=== PATIENT | male | born 1945 | race Caucasian/White ===

== ENCOUNTER → 2018-01-10 | Outpatient (CLI) | payer MEDICARE, OTHER ==
[~2018-01-10] MED LIST: ASPI325; ATOR10; BUDE6HFA; DOXA2 PO; HYDACE5 PO; LISI20; Norco 10-325 T1 EACH PO; PROBIOTIC1 EAC1 PO; PROM25 PO; PSYL5.85P PO; RXHYD5325 PO; TAMS.4ER PO; WARF4 PO; WARF7.5 PO; Zofran Odt4 MG SL
== END | disposition home or self-care (01) ==
LOC: PLD 07:31 → LAB SHORT 07:31
DX: D04.4 Carcinoma in situ of skin of scalp and neck (principal)
CPT/HCPCS: 88305

== ENCOUNTER → 2018-02-06 | Outpatient (CLI) | payer MEDICARE, OTHER | END | disposition home or self-care (01) | LOC: LAB SHORT 08:23 → PLD 08:23 | DX: D04.4 Carcinoma in situ of skin of scalp and neck (principal) | CPT/HCPCS: 88305 ==

== ENCOUNTER 2019-02-02 11:42 | Emergency (ER) | payer MEDICARE, OTHER ==
[~2019-02-02] VITALS: Ht 177.8 cm; Wt 91.2 kg
[2019-02-02 12:27] LABS: BASOPHILS ABSOLUTE AUTO 0.03 K/mm3 (0.00-0.23); BASOPHILS PERCENT AUTO 0 % (0-2); EOSINOPHILS ABSOLUTE AUTO 0.09 K/mm3 (0.00-0.68); EOSINOPHILS PERCENT AUTO 1 % (0-6); Hematocrit 43.9 % (37.0-53.0); IMMATURE GRAN ABSOLUTE AUTO 0.02 K/mm3 (0.00-0.10); IMMATURE GRAN PERCENT AUTO 0 % (0-1); LYMPHOCYTES ABSOLUTE AUTO 0.66 K/mm3 (0.84-5.20); LYMPHOCYTES PERCENT AUTO 8 % (21-46); MONOCYTES ABSOLUTE AUTO 0.39 K/mm3 (0.16-1.47); MONOCYTES PERCENT AUTO 5 % (4-13); Mean Corpuscular HGB Conc 34.2 g/dL (31.5-36.5); Mean Corpuscular Volume 94 fL (80-100); Mean Platelet Volume 9.8 fL (9.1-12.4); NEUTROPHILS ABSOLUTE AUTO 7.04 K/mm3 (1.96-9.15); NEUTROPHILS PERCENT AUTO 86 % (41-73); Platelet Count 192 K/mm3 (150-400); RDW Standard Deviation 41.5 fL (35.1-46.3); Red Blood Cell Count 4.69 M/mm3 (4.30-5.90); White Blood Cell Count 8.23 K/mm3 (4.00-11.30)
[2019-02-02 12:52] LABS: Alanine Aminotransfer (ALT/SGP 60 U/L (12-78); Albumin, Blood 4.1 g/dL (3.4-5.0); Albumin/Globulin Ratio 1.1 (0.8-1.8); Alk Phos 78 U/L (50-136); Anion Gap 5 mmol/L (6-16); Aspartate Aminotrans (AST/SGOT 35 U/L (12-37); Bilirubin, Total 0.9 mg/dL (0.1-1.0); Blood Urea Nitrogen 14 mg/dL (8-24); Bun/Creatinine Ratio 19.8 (12.0-20.0); CO2, Blood 27 mmol/L (21-32); Chloride, Blood 105 mmol/L (98-108); Creatinine, Blood 0.71 mg/dL (0.60-1.20); Globulin, Blood 3.9 g/dL (2.2-4.0); Glomerular Filtration Rate >60 (60-); Glucose, Blood 137 mg/dL (70-99); Potassium, Blood 3.9 mmol/L (3.5-5.5); Sodium, Blood 137 mmol/L (136-145)
[2019-02-02] MEDS ORDERED: Rapaflo8 MG PO (13:30)
[2019-02-02] MEDS ORDERED: STRIVERDI RESPIM4 GM INH (13:31)
[2019-02-02] MEDS ORDERED: AMLO10 PO (13:31)
[2019-02-02] MEDS ORDERED: MOME220I INH (13:33)
[2019-02-02 14:10] LABS: Bilirubin, Urine Neg (Neg); Blood, Urine Neg (Neg); Glucose Qualitative, Urine Neg (Neg); Ketones, Urine 2+ (Neg); Leukocyte Esterase, Urine Neg (Neg); Nitrite, Urine Neg (Neg); Protein, Urine 1+ (Neg); Urobilinogen, Urine NORM (Normal)
[2019-02-02 14:25] LABS: Appearance, Urine Clear (Clear); Color, Urine Yellow (P-Yellow)
[2019-02-02] MEDS ORDERED: MOTION RELIEF25 MG PO (15:27)
[2019-02-02] MEDS ORDERED: Prednisone20 MG PO (15:27)
== END 2019-02-02 15:46 | disposition home or self-care (01) ==
LOC: ER 11:42
PROVIDERS: Emergency Medicine
DX: H83.09 Labyrinthitis, unspecified ear (principal); E86.0 Dehydration; C61 Malignant neoplasm of prostate; I10 Essential (primary) hypertension; J45.909 Unspecified asthma, uncomplicated; E78.5 Hyperlipidemia, unspecified; Z79.899 Other long term (current) drug therapy; Z79.82 Long term (current) use of aspirin
CPT/HCPCS: 36415; 80053; 85025; 93005; 93010; 96361; 96374; 96375; 99285-25; J1100; J2405; J7120

== ENCOUNTER 2019-10-03 10:36 | Day surgery (SDC) | payer MEDICARE, OTHER ==
[~2019-10-03] VITALS: Ht 177.8 cm; Wt 91.3 kg
[~2019-10-03 10:36] MED LIST changes: +AMLO10 PO; +MOME220I INH; +MOTION RELIEF25 MG PO; +Prednisone20 MG PO; +Rapaflo8 MG PO; +STRIVERDI RESPIM4 GM INH
[2019-10-03] MEDS ORDERED: CODACE30 (11:07)
[2019-10-03] MEDS ORDERED: ALBU90OI (11:09)
[2019-10-03] MEDS ORDERED: ERGO400 (11:10)
[2019-10-03] MEDS ORDERED: NEPHPLEX RX TA1 EACH (11:10)
[2019-10-03] MEDS ORDERED: FISH OIL + D31 EACH (11:10)
[2019-10-03] MEDS ORDERED: AEROECLIPSE II1 EACH (11:11)
[2019-10-03] MEDS ORDERED: TUMS500 MG (11:12)
[2019-10-03] MEDS ORDERED: Flonase 0.05% N16 GM (11:12)
[2019-10-03] MEDS ORDERED: XARELTO15 MG (11:13)
== END 2019-10-03 13:38 | disposition home or self-care (01) ==
LOC: ORSCSDS 10:36
PROVIDERS: Internal Medicine Gastroenterology
PROC: 0DBH8ZX Excision of Cecum, Via Natural or Artificial Opening Endoscopic, Diagnostic (ICD-10-PCS; principal; 2019-10-03 11:30)
PROC: 0DBL8ZX Excision of Transverse Colon, Via Natural or Artificial Opening Endoscopic, Diagnostic (ICD-10-PCS; principal; 2019-10-03 11:30)
PROC: 0DBN8ZX Excision of Sigmoid Colon, Via Natural or Artificial Opening Endoscopic, Diagnostic (ICD-10-PCS; principal; 2019-10-03 11:30)
PROC: 0DJ08ZZ Inspection of Upper Intestinal Tract, Via Natural or Artificial Opening Endoscopic (ICD-10-PCS; principal; 2019-10-03 11:30)
PROC: 0DBM8ZX Excision of Descending Colon, Via Natural or Artificial Opening Endoscopic, Diagnostic (ICD-10-PCS; principal; 2019-10-03 11:30)
PROC: 0D757ZZ Dilation of Esophagus, Via Natural or Artificial Opening (ICD-10-PCS; principal; 2019-10-03 11:30)
DX: Z12.11 Encounter for screening for malignant neoplasm of colon (principal); Z86.010 Personal history of colon polyps; D12.3 Benign neoplasm of transverse colon; D12.0 Benign neoplasm of cecum; D12.4 Benign neoplasm of descending colon; D12.5 Benign neoplasm of sigmoid colon; K21.9 Gastro-esophageal reflux disease without esophagitis; K57.30 Diverticulosis of large intestine without perforation or abscess without bleeding; B37.81 Candidal esophagitis; K22.2 Esophageal obstruction; I48.91 Unspecified atrial fibrillation; Z79.01 Long term (current) use of anticoagulants; J45.909 Unspecified asthma, uncomplicated; J44.9 Chronic obstructive pulmonary disease, unspecified; I10 Essential (primary) hypertension; E78.5 Hyperlipidemia, unspecified; Z79.899 Other long term (current) drug therapy
CPT/HCPCS: 88305; J2704; J7120

== ENCOUNTER 2020-06-17 03:01 | Emergency (ER) | payer OTHER, MEDICARE ==
[~2020-06-17] VITALS: Ht 177.8 cm; Wt 79.4 kg
[~2020-06-17 03:01] MED LIST changes: +AEROECLIPSE II1 EACH; +ALBU90OI; +CODACE30; +ERGO400; +FISH OIL + D31 EACH; +Flonase 0.05% N16 GM; +NEPHPLEX RX TA1 EACH; +TUMS500 MG; +XARELTO15 MG
== END 2020-06-17 05:00 | disposition home or self-care (01) ==
LOC: ER 03:01
DX: N20.0 Calculus of kidney (principal); I48.91 Unspecified atrial fibrillation; I10 Essential (primary) hypertension; E78.00 Pure hypercholesterolemia, unspecified; Z91.030 Bee allergy status; Z88.2 Allergy status to sulfonamides; Z79.899 Other long term (current) drug therapy; Z79.01 Long term (current) use of anticoagulants
CPT/HCPCS: 96374; 96375; 99283-25; A9270; J1885

== ENCOUNTER 2021-04-13 08:37 | Day surgery (SDC) | payer OTHER ==
[~2021-04-13] VITALS: Ht 177.8 cm; Wt 89.7 kg
== END 2021-04-13 10:24 | disposition home or self-care (01) ==
LOC: ORSCSDS 08:37
PROVIDERS: Ophthalmology
PROC: 08RJ3JZ Replacement of Right Lens with Synthetic Substitute, Percutaneous Approach (ICD-10-PCS; principal; 2021-04-13 09:30)
DX: H25.11 Age-related nuclear cataract, right eye (principal); H21.81 Floppy iris syndrome; I10 Essential (primary) hypertension; E78.5 Hyperlipidemia, unspecified; I48.91 Unspecified atrial fibrillation; Z79.01 Long term (current) use of anticoagulants; G47.33 Obstructive sleep apnea (adult) (pediatric); J44.9 Chronic obstructive pulmonary disease, unspecified; J45.909 Unspecified asthma, uncomplicated; Z79.899 Other long term (current) drug therapy
CPT/HCPCS: J2001; J2250; J3010; J3301; J7040; V2632

== ENCOUNTER 2021-04-27 07:07 | Day surgery (SDC) | payer OTHER ==
[~2021-04-27] VITALS: Ht 177.8 cm; Wt 90.4 kg
== END 2021-04-27 08:53 | disposition home or self-care (01) ==
LOC: ORSCSDS 07:07
PROVIDERS: Ophthalmology
PROC: 08RK3JZ Replacement of Left Lens with Synthetic Substitute, Percutaneous Approach (ICD-10-PCS; principal; 2021-04-27 08:30)
DX: H25.12 Age-related nuclear cataract, left eye (principal); H21.81 Floppy iris syndrome; I10 Essential (primary) hypertension; J44.9 Chronic obstructive pulmonary disease, unspecified; G47.33 Obstructive sleep apnea (adult) (pediatric); N18.2 Chronic kidney disease, stage 2 (mild); Z79.01 Long term (current) use of anticoagulants; Z79.899 Other long term (current) drug therapy
CPT/HCPCS: J2001; J2250; J3010; J3301; J7040; V2632

== ENCOUNTER → 2021-07-13 | Outpatient (CLI) | payer OTHER | END | disposition home or self-care (01) | LOC: LAB SHORT 11:13 | DX: D04.39 Carcinoma in situ of skin of other parts of face (principal); D04.4 Carcinoma in situ of skin of scalp and neck | CPT/HCPCS: 88305 ==

== ENCOUNTER 2022-02-17 13:29 | Emergency (ER) | payer MEDICARE, OTHER ==
[~2022-02-17] VITALS: Ht 177.8 cm; Wt 86.2 kg
[2022-02-17] MEDS ORDERED: Percocet 5-3251 EACH PO (18:42)
== END 2022-02-17 18:47 | disposition home or self-care (01) ==
LOC: ER 13:29
DX: H57.12 Ocular pain, left eye (principal); G89.18 Other acute postprocedural pain; I48.91 Unspecified atrial fibrillation; I10 Essential (primary) hypertension; Z98.890 Other specified postprocedural states; Z79.01 Long term (current) use of anticoagulants; Z79.899 Other long term (current) drug therapy; Z88.2 Allergy status to sulfonamides; Z91.038 Other insect allergy status
CPT/HCPCS: 70450; A9270

== ENCOUNTER → 2022-09-26 | Outpatient (CLI) | payer MEDICARE, OTHER ==
[~2022-09-26] MED LIST changes: +Percocet 5-3251 EACH PO
== END ==
LOC: LAB SHORT 11:31 → PLD 11:31
DX: D48.5 Neoplasm of uncertain behavior of skin (principal)
CPT/HCPCS: 88305

== ENCOUNTER → 2022-11-30 | Outpatient (CLI) | payer MEDICARE, OTHER | END | disposition home or self-care (01) | LOC: PLD 14:42 → LAB SHORT 14:42 | DX: C44.329 Squamous cell carcinoma of skin of other parts of face (principal) | CPT/HCPCS: 88305 ==

== ENCOUNTER → 2022-12-19 | Outpatient (CLI) | payer MEDICARE, OTHER | LOC: LAB 08:07 → PLD 08:07 → LAB SHORT 08:07 | DX: L57.0 Actinic keratosis (principal) | CPT/HCPCS: 88305 ==

== ENCOUNTER 2023-05-09 07:56 | Day surgery (SDC) | payer MEDICARE, OTHER ==
[~2023-05-09] VITALS: Ht 177.8 cm; Wt 84.7 kg
[~2023-05-09 07:56] MED LIST changes: -ALBU90OI; +ALBU90OI INH; -AMLO10 PO; -ATOR10; +ATOR20 PO; +Amlodipine Bes2.5 MG; +BUPR150ER PO; +DULERA 200 MCG-13 GM; +ELIQUIS5 M2 PO; +ERGO400 PO; +MONT10T PO; +Naltrexone HCl50 MG PO; +SILODOSIN8 MG PO; +STIOLTO RESPIMAT4 G1 INH; +TRAZ50 PO; +Vitamin B Comple1 EA PO; +ZYRTEC10 M2 PO
[2023-05-09 10:20] VITALS: BP 163/89
--- NOTE | 2023-05-09 10:23 | NUR ---
05/09/23 [id number] Jose Michaud NOTED SMALL SKIN TEAR TO LEFT ELBOW WHICH WAS CLEANSED AND DRESSED WITH A BANDAID.
== END 2023-05-09 10:15 | disposition home or self-care (01) ==
LOC: ORSCSDS 07:56
PROVIDERS: Internal Medicine Gastroenterology
PROC: 0DBK8ZX Excision of Ascending Colon, Via Natural or Artificial Opening Endoscopic, Diagnostic (ICD-10-PCS; principal; 2023-05-09 09:00)
PROC: 0D758ZZ Dilation of Esophagus, Via Natural or Artificial Opening Endoscopic (ICD-10-PCS; principal; 2023-05-09 09:00)
PROC: 0DB68ZX Excision of Stomach, Via Natural or Artificial Opening Endoscopic, Diagnostic (ICD-10-PCS; principal; 2023-05-09 09:00)
PROC: 0DBL8ZX Excision of Transverse Colon, Via Natural or Artificial Opening Endoscopic, Diagnostic (ICD-10-PCS; principal; 2023-05-09 09:00)
DX: R13.14 Dysphagia, pharyngoesophageal phase (principal); K29.50 Unspecified chronic gastritis without bleeding; K22.2 Esophageal obstruction; K44.9 Diaphragmatic hernia without obstruction or gangrene; B96.81 Helicobacter pylori [H. pylori] as the cause of diseases classified elsewhere; Z12.11 Encounter for screening for malignant neoplasm of colon; D12.2 Benign neoplasm of ascending colon; D12.3 Benign neoplasm of transverse colon; K57.30 Diverticulosis of large intestine without perforation or abscess without bleeding; Z86.010 Personal history of colon polyps; G47.33 Obstructive sleep apnea (adult) (pediatric); J44.9 Chronic obstructive pulmonary disease, unspecified; I48.91 Unspecified atrial fibrillation; Z85.46 Personal history of malignant neoplasm of prostate; Z79.01 Long term (current) use of anticoagulants; Z79.899 Other long term (current) drug therapy
CPT/HCPCS: 88305; 88342; J2704; J7120